=== PATIENT | male | born 1945 | race Caucasian/White ===

== ENCOUNTER 2022-11-29 06:45 | Day surgery (SDC) | payer MEDICARE, OTHER, SELFPAY ==
--- NOTE | 2022-11-29 | PATH_ITS ---
[facility] Accession Number: [id number] No. of containers..01 Tissue . 01 Material submitted: . colon - COLON POLYPS . 01 Diagnosis: Colon Polyps: Tubular adenomas and colonic mucosa with prominent benign lymphoid aggregates. MRV 12/02/2022 1407 Local . 01 Electronically signed: . Efrain Nugent MD, PhD, Pathologist NPI- [id number] . 01 Gross description: . COLON POLYPS: Received in formalin are multiple fragment(s) of wilkinson, soft tissue measuring 0.9 x 0.3 x 0.1 cm in aggregate submitted entirely in 1 cassette(s) /CPE 12/01/2022 0903 Local . 01 Pathologist provided ICD-10: D12.6 . 01 CPT . 920798 Specimen Comment: A courtesy copy of this report has been sent to [phone] Performed at: 01 [facility] [address] [place] [address], [place], [place] [id number] MD Raffaele Menjivar MD Phone: [phone]
[2022-11-29] MEDS: LACTATED RINGERS 1,000 ML 120 ML IV (07:14)
[2022-11-29 07:25] VITALS: BP 183/95; PULSE 72; RESP 16; TEMP 36.3; O2SAT 97; BMI 36.9
--- NOTE | 2022-11-29 07:58 | PM.HP.1 ---
History of Present Illness History of Present Illness Date Patient Seen: 11/29/22 Time Patient Seen: 07:58 Chief complaint: SDC Narrative: Personal history of colon polyps. [facility] Social History household members: spouse Smoking Status: Former smoker alcohol intake: never Meds Home Medications and Allergies Home Medications Medication Instructions Recorded Confirmed Type allopurinol 100 mg tablet 100 mg PO DAILY 11/29/22 11/29/22 History atorvastatin 80 mg tablet 80 mg PO DAILY 11/29/22 11/29/22 History hydrochlorothiazide 12.5 mg tablet 12.5 mg PO CONT 11/29/22 11/29/22 History metoprolol succinate 200 mg 200 mg PO DAILY 11/29/22 11/29/22 History tablet,extended release 24 hr telmisartan 80 mg tablet (Micardis) 80 mg PO DAILY 11/29/22 11/29/22 History Allergies Allergy/AdvReac Type Severity Reaction Status Date / Time No Known Allergies Allergy Uncoded 11/29/22 07:16 Review of Systems Review of Systems ROS: Yes All systems reviewed with the patient and are negative except as otherwise documented Exam Vital Signs (past 8 hours): - 11/29/22 07:25 Temperature 97.4 F L Pulse Rate 72 Respiratory Rate 16 Blood Pressure 183/95 H Pulse Oximetry 97 Oxygen Delivery Method Room Air Oxygen Delivery Method Room Air Const General: cooperative HENMT Head: normal to inspection Eyes General: appearance normal, both eyes and all related structures Neck Neck: normal visual inspection Chest Chest: normal inspection of the chest Resp Effort & Inspection: normal respiratory effort Cardio Rate: regular rate GI Inspection: normal to inspection Skin General: no rashes or lesions noted Neuro General: patient alert and patient awake Extrem General: normal to inspection and no pedal edema Psych Appearance: grossly normal Assessment & Plan Assessment & Plan narrative: 77-year-old male with a personal history of colon polyps. Colonoscopy is planned for today
--- NOTE | 2022-11-29 07:59 | PM.PREOP ---
Pre-operative Note Interval Note History & Physical reviewed/Exam performed by Physician: Yes Changes to H&P: Yes ASA Class (for procedural sedation): II
--- NOTE | 2022-11-29 08:26 | P.OP.COLON_ITS ---
Operative Date/Time/Diagnoses Date of procedure: 11/29/22 Time of procedure: 08:26 Pre-op diagnosis: Colon polyp history Post-op diagnosis: same Procedure & Clinicians Study performed: Colonoscopy with hot snare polypectomy cold snare polypectomy and cold forceps polypectomy Same procedure as scheduled: Yes Indications: Colon polyp history Surgeon: Domo Smith Procedure Notes SCOAP/Timeout: Done Procedure in detail: After the risks and benefits were explained, written and verbal informed consent was obtained. The patient was brought into the procedure room and placed into the left lateral decubitus position. Please see anesthesia notes for sedation details. Digital rectal examination was accomplished. The scope was introduced into the patient and advanced under direct visualization to the cecum as ident ified by the appendiceal orifice and ileocecal valve. The scope was slowly withdrawn to carefully examine the mucosa for any defects or lesions. Comprehensive imaging was accomplished throughout the rectum including the dentate line. The colon was decompressed, the scope was then removed from the patient who tolerated the procedure well. Adult colonoscope Bowel prep adequate Scope withdrawal time: 17 minutes Sedation minutes: 21 Complications: none Impression: Patient had mild internal grade 1 to grade 2 hemorrhoids. Mild diverticulosis was identified in the left colon. There were 4 polyps seen and removed today. The 1st was from the ascending colon measuring approximately 5 mm. Cold snare was employed. There was some mild oozing so the area was touched up with the tip of the snare for hemostasis. In the transverse there was a diminutive polyp that was initially addressed with cold snare. Some of this polyp remained in behind and was cleaned up with cold forceps for completion of the polypectomy. There was a larger perhaps 7 mm sessile polyp in the transverse removed with hot snare. In the descending region there was a diminutive 4 mm polyp removed with cold snare. No additional pathology was appreciated throughout. Endoscopic diagnosis 1. Four small colon polyps 2. Diverticulosis 3. Grade 2 hemorrhoids Post-procedure Plan for aftercare: 1. Await histopathology. 2. Consider repeat colonoscopy 3 years. Disposition: PACU
[2022-11-29 08:29] VITALS: BP 100/69; PULSE 71; RESP 19; TEMP 36.2; O2SAT 95
[2022-11-29 08:33] VITALS: BP 135/67; PULSE 60; RESP 29; O2SAT 98
[2022-11-29 08:38] VITALS: BP 127/82; PULSE 67; RESP 20; TEMP 36.1; O2SAT 97
[2022-11-29 08:39] VITALS: BP 143/78; PULSE 67; RESP 21; O2SAT 98
== END 2022-11-29 08:53 | disposition home or self-care (01) ==
PROVIDERS: Family Provider Family Medicine; PCP Internal Medicine; Referring Provider Internal Medicine Gastroenterology; Visit Provider Internal Medicine Gastroenterology
PROC: 0DJD8ZZ Inspection of Lower Intestinal Tract, Via Natural or Artificial Opening Endoscopic (ICD-10-PCS; CPT 45378; principal; 2022-11-29 08:00)
DX: Z12.11 Encounter for screening for malignant neoplasm of colon (principal); Z86.010 Personal history of colon polyps; K57.30 Diverticulosis of large intestine without perforation or abscess without bleeding; K64.1 Second degree hemorrhoids; D12.6 Benign neoplasm of colon, unspecified
CPT/HCPCS: 45385; 45380

== ENCOUNTER → 2023-10-14 | Outpatient (CLI) | payer MEDICARE, OTHER, SELFPAY ==
--- NOTE | 2023-10-14 | DI.US.S_ITS ---
PROCEDURE: Parotid cyst aspiration INDICATIONS: lesion of parotid gland TECHNIQUE: The indications, alternatives, benefits, risks, and complications of the procedure were explained to the patient. Written informed consent was obtained and placed in the chart. Real-time sonography was utilized to choose the site for percutaneous parotid cyst aspiration. The skin was prepped and draped in the usual sterile fashion. 1% lidocaine was infiltrated down to the site of interest. An 18 gauge needle was used to access the cystic lesion and the contents were aspirated and sent for cytologic analysis. COMPARISON: None. FINDINGS: Biopsy site(s): Right parotid gland Needle: 18 gauge needle Aspiration volume and fluid: Approximately 5 cc, serous/blood-tinged Medications: 1% lidocaine for local anaesthesia. Complications: None. IMPRESSION: Successful ultrasound-guided aspiration of a right parotid cystic lesion. Dictated by: Julieta Fine M.D. on 10/14/2023 at 12:32 Approved by: Julieta Fine M.D. on 10/14/2023 at 12:34
--- NOTE | 2023-10-14 | PATH_ITS ---
Note [facility] Accession Number: [id number] TESTS RESULT FLAG UNITS REF RANGE LAB Clinician Provided Cytology Information No. of containers..01 Other (Miscellaneous) Source: RIGHT PAROTID GLAND mMASS/CYST DIAGNOSIS: RIGHT PAROTID GLAND mMASS/CYST INADEQUATE, INSUFFICIENT CELLS FOR STUDY. THIS SPECIMEN IS NON-DIAGNOSTIC DUE TO SCANT CELLULARITY AND/OR POOR SAMPLE PRESERVATION. THIS INTERPRETATION INCLUDES EVALUATION OF A CELL BLOCK. COMMENT: The specimen is paucicellular and includes scattered macrophages, rare degenerated epithelioid cells, and rare multinucleated giant cells. Pathologist ICD10: 01 R22.1 Signed out by: Miriam Wilson MD, Pathologist NPI- [id number] Performed by: Low [facility], [employer] ([facility]) Gross description: 30 CC, RED, HAZY RECIEVED: IN CYTOLYT WITH BLUE CAP CONTAINER.VO /VDU 10/17/2023 0715 Local FLAG LEGEND: L-Low Normal,H-High Normal,LL-Alert Low,HH-Alert High <-Panic Low,>-Panic High,A-Abnormal,AA-Critical Abnormal Performed at: 01 [facility] [address], [place] [address] Raffaele Menjivar MD, Performed at: [facility] Cyt[facility] [address], [place], [place] [id number] MD Raffaele Menjivar MD Phone: [phone]
== END ==
LOC: US 08:35
PROVIDERS: Family Provider Family Medicine; PCP Internal Medicine; Referring Provider Otolaryngology; Visit Provider Otolaryngology
DX: K11.9 Disease of salivary gland, unspecified (principal)
CPT/HCPCS: 38505; 76942